=== PATIENT | male | born 1955 | race African-American/Black ===

== ENCOUNTER 2024-02-22 13:54 | Inpatient (IN) | payer OTHER ==
[~2024-02-22 13:54] MED LIST: Iopamidol 370 76% 100 ML VIAL ONE
[2024-02-22] MEDS ORDERED: Labetalol HCl 100 MG/20 ML VIAL ONE (14:13)
[2024-02-22 14:21] LABS: #Basophils 0.03 10x3/uL (0.0-0.2); #Eosinphils 0.03 10x3/uL (0.0-0.5); #Monocytes 0.41 10x3/uL (0.0-1.1); #Neutrophils 2.15 10x3/uL (1.5-8.4); %Basophils 0.7 % (0.0-2.0); %Eosinophils 0.7 % (0.0-6.0); %Lymphocytes 39.4 % (18.0-47.0); %Monocytes 9.4 % (0.0-10.0); %Neutrophils 49.6 % (40.0-75.0); Hematocrit 41.5 % (38.8-50.0); Mean Corpuscular HGB CONC 33.7 g/dL (32.0-36.0); Mean Corpuscular Hemoglobin 27.6 pg (27.0-33.0); Mean Corpuscular Volume 81.7 fL (81.2-95.1); Platelet Count 170 10x3/uL (150-450); RBC Distribution Width 12.1 % (11.5-14.5); Red Blood Cell (RBC) Count 5.08 10x6/uL (4.32-5.72); White Blood Cell (WBC) Count 4.3 10x3/uL (3.5-10.5)
[2024-02-22 14:22] LABS: PTT 26.8 sec (22.0-33.0); Prothrombin Time 11.1 sec (9.5-12.1)
[2024-02-22 14:27] LABS: ALT (SGPT) 15 U/L (8-55); AST (SGOT) 18 U/L (5-34); Albumin 3.7 g/dL (3.4-4.8); Alkaline Phosphatase 110 U/L (40-110); Anion Gap 15 mmol/L (10-20); BUN (Urea Nitrogen) 17 mg/dL (8.4-25.7); Bilirubin, Total 0.5 mg/dL (0.2-1.2); CK (CPK) 137 U/L (30-200); Calc. Creatinine Clearance 0 mL/min (70-130); Calcium 9.4 mg/dL (7.8-10.44); Carbon Dioxide 23 mmol/L (23-31); Chloride 100 mmol/L (98-107); Estimated GFR 66; Globulin 3.1 g/dL (2.4-3.5); Potassium 4.6 mmol/L (3.5-5.1); Protein, Total 6.8 g/dL (5.8-8.1); Sodium 133 mmol/L (136-145)
[2024-02-22 14:32] LABS: Glucose 472 mg/dL (80-115)
[2024-02-22 14:34] LABS: Troponin I 0.049 ng/mL (< 0.028)
[2024-02-22] MEDS ORDERED: Insulin Regular 300 UNITS/3 ML VIAL ONE (14:52)
[2024-02-22] MEDS ORDERED: Aspirin Chewable 81 MG TAB ONE (14:52)
[2024-02-22 18:02] VITALS: BMI 26.6
[2024-02-22] MEDS ORDERED: Acetaminophen 650 MG Suppository PR PRN (21:22)
[2024-02-22] MEDS ORDERED: Acetaminophen 325 MG TAB PO PRN (21:22)
[2024-02-22] MEDS ORDERED: hydrALAZINE 20 MG/ML VIAL SLOW IVP PRN (21:22)
[2024-02-22] MEDS ORDERED: Dextrose 50% Abboject 50 ML SYRINGE SLOW IVP PRN (21:25)
[2024-02-22] MEDS ORDERED: Glucagon 1 MG/ML KIT IM PRN (21:25)
[2024-02-22] MEDS ORDERED: Dextrose 5% in Water 1,000 ML IV PRN (21:25)
[2024-02-22] MEDS: Insulin Regular 300 UNITS/3 ML VIAL SC PRN (21:45)
[2024-02-22 22:50] LABS: Troponin I 0.099 ng/mL (< 0.028)
[2024-02-23 02:03] LABS: #Basophils 0.03 10x3/uL (0.0-0.2); #Eosinphils 0.09 10x3/uL (0.0-0.5); #Monocytes 0.45 10x3/uL (0.0-1.1); %Basophils 0.5 % (0.0-2.0); %Eosinophils 1.6 % (0.0-6.0); %Lymphocytes 29.8 % (18.0-47.0); %Monocytes 8.1 % (0.0-10.0); %Neutrophils 59.8 % (40.0-75.0); Hemoglobin 12.9 g/dL (13.5-17.5); Mean Corpuscular HGB CONC 33.1 g/dL (32.0-36.0); Mean Corpuscular Hemoglobin 26.9 pg (27.0-33.0); Mean Corpuscular Volume 81.4 fL (81.2-95.1); Mean Platelet Volume 11.4 fL (7.4-10.4); Platelet Count 177 10x3/uL (150-450); RBC Distribution Width 12.2 % (11.5-14.5); Red Blood Cell (RBC) Count 4.79 10x6/uL (4.32-5.72); White Blood Cell (WBC) Count 5.5 10x3/uL (3.5-10.5)
[2024-02-23 02:44] LABS: Anion Gap 14 mmol/L (10-20); BUN (Urea Nitrogen) 20 mg/dL (8.4-25.7); Calc. Creatinine Clearance 65 mL/min (70-130); Calcium 9.2 mg/dL (7.8-10.44); Carbon Dioxide 22 mmol/L (23-31); Cardiac Risk 7.1 (Less than 4.5); Chloride 105 mmol/L (98-107); Cholesterol 170 mg/dl (< 200 Desired); Estimated GFR 63; Glucose 187 mg/dL (80-115); HDL Cholesterol 24 mg/dL (>60 Neg Risk); LDL Cholesterol, Calculated 128 mg/dL; Potassium 3.8 mmol/L (3.5-5.1); Sodium 137 mmol/L (136-145); Triglycerides 90 mg/dL (Less than 150)
[2024-02-23] MEDS: Aspirin 81 mg Enteric Coated Tablet PO SCH (08:36)
[2024-02-23] MEDS: Insulin Regular 300 UNITS/3 ML VIAL SC PRN (12:19)
[2024-02-23 13:41] LABS: Hemoglobin A1c 11.6 % (4.0-6.0)
[2024-02-23] MEDS: Enoxaparin 40 MG (0.4 mL) SYRINGE SC SCH (15:30)
[2024-02-23] MEDS: Atorvastatin Calcium 40 MG TAB PO SCH (20:51)
[2024-02-24 05:21] LABS: #Basophils 0.05 10x3/uL (0.0-0.2); #Eosinphils 0.22 10x3/uL (0.0-0.5); #Monocytes 0.71 10x3/uL (0.0-1.1); #Neutrophils 3.36 10x3/uL (1.5-8.4); %Basophils 0.7 % (0.0-2.0); %Eosinophils 3.2 % (0.0-6.0); %Lymphocytes 35.7 % (18.0-47.0); %Monocytes 10.5 % (0.0-10.0); %Neutrophils 49.8 % (40.0-75.0); Hematocrit 39.5 % (38.8-50.0); Hemoglobin 13.1 g/dL (13.5-17.5); Mean Corpuscular HGB CONC 33.2 g/dL (32.0-36.0); Mean Corpuscular Hemoglobin 27.1 pg (27.0-33.0); Mean Corpuscular Volume 81.8 fL (81.2-95.1); Mean Platelet Volume 11.4 fL (7.4-10.4); Platelet Count 196 10x3/uL (150-450); RBC Distribution Width 12.3 % (11.5-14.5); Red Blood Cell (RBC) Count 4.83 10x6/uL (4.32-5.72); White Blood Cell (WBC) Count 6.8 10x3/uL (3.5-10.5)
[2024-02-24 05:36] LABS: Anion Gap 14 mmol/L (10-20); BUN (Urea Nitrogen) 24 mg/dL (8.4-25.7); Calc. Creatinine Clearance 80 mL/min (70-130); Calcium 9.3 mg/dL (7.8-10.44); Carbon Dioxide 20 mmol/L (23-31); Chloride 108 mmol/L (98-107); Estimated GFR 81; Glucose 186 mg/dL (80-115); Potassium 3.8 mmol/L (3.5-5.1); Sodium 138 mmol/L (136-145)
[2024-02-24] MEDS: Enoxaparin 40 MG (0.4 mL) SYRINGE SC SCH (08:19)
[2024-02-24] MEDS: Hydrochlorothiazide 25 MG TAB PO SCH (10:40)
[2024-02-24] MEDS: Amlodipine 10 MG TAB PO SCH (13:27)
[2024-02-24] MEDS: Lisinopril 20 MG TAB PO SCH (21:21)
[2024-02-25 05:05] LABS: #Basophils 0.04 10x3/uL (0.0-0.2); #Monocytes 0.63 10x3/uL (0.0-1.1); #Neutrophils 3.44 10x3/uL (1.5-8.4); %Basophils 0.6 % (0.0-2.0); %Eosinophils 2.8 % (0.0-6.0); %Lymphocytes 38.9 % (18.0-47.0); %Monocytes 8.9 % (0.0-10.0); %Neutrophils 48.7 % (40.0-75.0); Hematocrit 42.7 % (38.8-50.0); Hemoglobin 14.4 g/dL (13.5-17.5); Mean Corpuscular HGB CONC 33.7 g/dL (32.0-36.0); Mean Corpuscular Hemoglobin 27.8 pg (27.0-33.0); Mean Corpuscular Volume 82.4 fL (81.2-95.1); Mean Platelet Volume 11.4 fL (7.4-10.4); Platelet Count 202 10x3/uL (150-450); RBC Distribution Width 12.2 % (11.5-14.5); Red Blood Cell (RBC) Count 5.18 10x6/uL (4.32-5.72); White Blood Cell (WBC) Count 7.1 10x3/uL (3.5-10.5)
[2024-02-25 05:26] LABS: Anion Gap 16 mmol/L (10-20); BUN (Urea Nitrogen) 21 mg/dL (8.4-25.7); Calc. Creatinine Clearance 81 mL/min (70-130); Calcium 9.7 mg/dL (7.8-10.44); Carbon Dioxide 20 mmol/L (23-31); Chloride 105 mmol/L (98-107); Estimated GFR 81; Glucose 206 mg/dL (80-115); Potassium 4.1 mmol/L (3.5-5.1); Sodium 137 mmol/L (136-145)
[2024-02-25] MEDS: DULoxetine 30 MG CAP PO SCH (09:16)
[2024-02-25] MEDS: Famotidine 20 MG TAB PO SCH (09:17)
[2024-02-25] MEDS: glipiZIDE 5 MG TAB PO SCH (09:17)
[2024-02-25] MEDS: Amlodipine 10 MG TAB PO SCH (09:17)
[2024-02-25] MEDS: Hydrochlorothiazide 25 MG TAB PO SCH (09:18)
[2024-02-25] MEDS: Lisinopril 20 MG TAB PO SCH (09:18)
[2024-02-26] MEDS: Minoxidil 2.5 MG TAB PO SCH (09:03)
[2024-02-26] MEDS: Insulin NPH Human Isophane 100 UNITS/ML (10 ML VIAL) SC SCH (09:05)
[2024-02-29 09:22] VITALS: TEMP 97.7
[2024-02-29 09:58] VITALS: BP 132/57
== END 2024-02-29 12:48 | DRG 65 ==
LOC: EEVIPCON 13:54 → CSHERS 13:54 → CSHTELE 16:26 → OBSVTOIN 02-23 13:14
PROVIDERS: ADMIT Family Medicine; ATTEND Family Medicine
DX: I63.9 Cerebral infarction, unspecified (principal); G81.91 Hemiplegia, unspecified affecting right dominant side; I5A Non-ischemic myocardial injury (non-traumatic); G51.0 Bell's palsy; I10 Essential (primary) hypertension; E78.5 Hyperlipidemia, unspecified; Z79.899 Other long term (current) drug therapy; Z79.4 Long term (current) use of insulin; Z79.82 Long term (current) use of aspirin; E11.65 Type 2 diabetes mellitus with hyperglycemia
CPT/HCPCS: 0042T; 36415; 36416; 70450; 70551; 80048; 80053; 80061; 82550; 83036; 84484; 85025; 85610; 85730; 93005; 93010; 93306; J1650; J1815; Q9967